=== PATIENT | male | born 1970 | race African-American/Black ===

== ENCOUNTER 2019-10-11 07:19 | Emergency (ER) | payer OTHER ==
[~2019-10-11] VITALS: Ht 177.8 cm; Wt 80.0 kg
[2019-10-11 07:26] VITALS: BP 130/83
[2019-10-11] MEDS ORDERED: LIDOcaine 5% patch TP STA (08:14)
[2019-10-11] MEDS ORDERED: cyclobenzaprine 10mg tablet PO ONE (08:15)
[2019-10-11] MEDS ORDERED: CYCL-1 PO (08:45)
[2019-10-11] MEDS ORDERED: LIDO700A32 TOP (08:45)
== END 2019-10-11 08:55 | disposition home or self-care (01) ==
LOC: ER 07:20
DX: S16.1XXA Strain of muscle, fascia and tendon at neck level, initial encounter (principal); F10.99 Alcohol use, unspecified with unspecified alcohol-induced disorder; Z79.899 Other long term (current) drug therapy; W18.39XA Other fall on same level, initial encounter; Y93.89 Activity, other specified; Y92.89 Other specified places as the place of occurrence of the external cause; Y99.8 Other external cause status; Y90.9 Presence of alcohol in blood, level not specified
CPT/HCPCS: 99283

== ENCOUNTER 2021-03-13 09:54 | Emergency (ER) | payer MEDICAID ==
[~2021-03-13] VITALS: Ht 177.8 cm; Wt 66.6 kg
[~2021-03-13 09:54] MED LIST: CYCL-1 PO; LIDO700A32 TOP
[2021-03-13 10:10] VITALS: BP 152/79
[2021-03-13] MEDS ORDERED: HYDR-3965 PO (10:51)
== END 2021-03-13 11:15 | disposition home or self-care (01) ==
LOC: ER 09:54
DX: S92.352A Displaced fracture of fifth metatarsal bone, left foot, initial encounter for closed fracture (principal); M79.672 Pain in left foot; Z72.89 Other problems related to lifestyle; Z79.899 Other long term (current) drug therapy; W18.40XA Slipping, tripping and stumbling without falling, unspecified, initial encounter; Y93.89 Activity, other specified; Y92.89 Other specified places as the place of occurrence of the external cause; Y99.8 Other external cause status
CPT/HCPCS: 73630; 99284

== ENCOUNTER 2021-03-16 12:54 | Emergency (ER) | payer MEDICAID ==
[~2021-03-16 12:54] MED LIST changes: +HYDR-3965 PO
--- NOTE | 2021-03-16 13:04 | NUR ---
pt left, he is going to follow up with clinic for referral to orthopedic provider
== END 2021-03-16 13:06 | disposition left against medical advice (07) ==
LOC: ER 12:54
DX: M79.673 Pain in unspecified foot (principal); Z53.21 Procedure and treatment not carried out due to patient leaving prior to being seen by health care provider

== ENCOUNTER 2021-03-27 18:05 | Emergency (ER) | payer MEDICAID ==
[~2021-03-27] VITALS: Ht 177.8 cm; Wt 66.8 kg
[2021-03-27] MEDS ORDERED: HYDR-3965 PO ×2 (19:41→19:48)
[2021-03-27 20:02] VITALS: BP 113/82
== END 2021-03-27 20:06 | disposition home or self-care (01) ==
LOC: ER 18:06
DX: S92.355A Nondisplaced fracture of fifth metatarsal bone, left foot, initial encounter for closed fracture (principal); Z72.89 Other problems related to lifestyle; Z79.899 Other long term (current) drug therapy; W10.8XXA Fall (on) (from) other stairs and steps, initial encounter; Y93.89 Activity, other specified; Y92.89 Other specified places as the place of occurrence of the external cause; Y99.0 Civilian activity done for income or pay
CPT/HCPCS: 99283

== ENCOUNTER 2021-03-28 05:26 | Emergency (ER) | payer MEDICAID ==
[~2021-03-28] VITALS: Ht 177.8 cm; Wt 77.3 kg
[2021-03-28 05:31] VITALS: BP 100/71
== END 2021-03-28 06:37 | disposition home or self-care (01) ==
LOC: ER 05:26
DX: S92.355D Nondisplaced fracture of fifth metatarsal bone, left foot, subsequent encounter for fracture with routine healing (principal); Z72.89 Other problems related to lifestyle; Z79.899 Other long term (current) drug therapy; X58.XXXD Exposure to other specified factors, subsequent encounter
CPT/HCPCS: 99281

== ENCOUNTER 2023-08-25 15:41 | Emergency (ER) | payer MEDICAID ==
[~2023-08-25] VITALS: Ht 177.8 cm; Wt 93.2 kg
[2023-08-25 15:59] VITALS: BP 102/61; PULSE 78; RESP 18; TEMP 97.1; O2SAT 97
[2023-08-25 19:00] LABS: ALANINE AMINOTRANSFERASE 22 U/L (12-78); ALKALINE PHOSPHATASE 84 IU/L (46-116); ANION GAP 7 (8-16); ASPARTATE AMINO TRANSFERASE 18 U/L (10-37); BASOPHILS % (AUTO) 0.4 % (0-1); BILIRUBIN,TOTAL 0.3 MG/DL (0.1-1.0); BLOOD UREA NITROGEN 18 MG/DL (7-18); BUN/CREATININE RATIO 11.1 (10.0-20.0); CALCIUM 9.3 MG/DL (8.5-10.1); CHLORIDE 103 MMOL/L (99-107); CREATININE 1.62 MG/DL (0.60-1.10); EOSINOPHILS % (AUTO) 0.3 % (0-6); GLUCOSE 106 MG/DL (70-104); HEMOGLOBIN 15.1 g/dl (14.0-17.9); LYMPHOCYTES # (AUTO) 0.8 X10'3 (1.1-4.8); LYMPHOCYTES % (AUTO) 7.3 % (21-51); MEAN CORPUSCULAR HEMOGLOBIN 27.1 PG (27.0-31.0); MEAN CORPUSCULAR HGB CONC 32.7 g/dL (33.0-36.5); MEAN CORPUSCULAR VOLUME 82.9 FL (78-98); MEAN PLATELET VOLUME 7.5 FL (7.4-10.4); MONOCYTES # (AUTO) 0.3 X10'3 (0-0.9); NEUTROPHILS # (AUTO) 9.7 X10'3 (1.8-7.7); PLATELET COUNT 487 X10'3 (140-440); POTASSIUM 4.1 MMOL/L (3.5-5.1); RED BLOOD COUNT 5.55 X10'6 (4.70-6.10); RED CELL DISTRIBUTION WIDTH 15.9 % (11.5-14.5); SODIUM 139 MMOL/L (135-145); TOTAL CARBON DIOXIDE 29.3 MMOL/L (24-32); TOTAL PROTEIN 7.9 G/DL (6.4-8.2); WHITE BLOOD COUNT 10.8 X10'3 (4.5-11.0); eCRCL 55 ML/MIN; eGFR 54 ML/MIN
== END 2023-08-25 19:16 | disposition home or self-care (01) ==
LOC: ER 15:42
DX: K40.90 Unilateral inguinal hernia, without obstruction or gangrene, not specified as recurrent (principal); F17.200 Nicotine dependence, unspecified, uncomplicated; Z87.81 Personal history of (healed) traumatic fracture; Z79.899 Other long term (current) drug therapy
CPT/HCPCS: 36415; 76870; 80053; 83605; 85025; 93976; 99284

== ENCOUNTER 2024-01-07 07:59 | Day surgery (SDC) | payer OTHER ==
[2024-01-02 14:56] LABS: BASOPHILS % (AUTO) 0.7 % (0-1); EOSINOPHILS # (AUTO) 0.1 X10'3 (0-0.9); EOSINOPHILS % (AUTO) 1.5 % (0-6); LYMPHOCYTES # (AUTO) 1.9 X10'3 (1.1-4.8); LYMPHOCYTES % (AUTO) 29.1 % (21-51); MEAN CORPUSCULAR HEMOGLOBIN 24.3 PG (27.0-31.0); MEAN CORPUSCULAR HGB CONC 31.9 g/dL (33.0-36.5); MEAN CORPUSCULAR VOLUME 76.2 FL (78-98); MEAN PLATELET VOLUME 7.3 FL (7.4-10.4); MONOCYTES # (AUTO) 0.6 X10'3 (0-0.9); NEUTROPHILS # (AUTO) 3.9 X10'3 (1.8-7.7); NEUTROPHILS % (AUTO) 59.7 % (42-75); PRE OP HEMATOCRIT 45.3 % (42.0-52.0); PRE OP HEMOGLOBIN 14.5 g/dL (14.0-17.9); PRE OP PLATELET COUNT 458 X10'3 (140-440); PRE OP WHITE BLOOD COUNT 6.6 10'3 (4.8-10.8); RED BLOOD COUNT 5.94 X10'6 (4.70-6.10)
[2024-01-02 15:11] LABS: ALBUMIN 3.5 G/DL (3.4-5.0); ALBUMIN/GLOBULIN RATIO 0.8 (1.1-1.5); ALKALINE PHOSPHATASE 73 IU/L (46-116); BLOOD UREA NITROGEN 9 MG/DL (7-18); BUN/CREATININE RATIO 7.7 (10.0-20.0); CALCIUM 8.7 MG/DL (8.5-10.1); CHLORIDE 106 MMOL/L (99-107); CREATININE 1.17 MG/DL (0.60-1.10); PRE OP ALT 20 U/L (30-65); PRE OP ANION GAP 8 (8-16); PRE OP AST 24 U/L (10-37); PRE OP BILIRUB, TOTAL 0.5 MG/DL (0.0-1.0); PRE OP GLUCOSE 111 MG/DL (70-104); PRE OP POTASSIUM 3.9 MMOL/L (3.4-5.1); PRE OP SODIUM 144 MMOL/L (135-145); TOTAL CARBON DIOXIDE 30.4 MMOL/L (24-32); TOTAL PROTEIN 7.7 G/DL (6.4-8.2); eGFR 79 ML/MIN
[2024-01-02 15:12] LABS: ANISOCYTOSIS 2+; MICROCYTOSIS 1+; PLATELET ESTIMATE INCREASED
[2024-01-02 15:13] LABS: ELLIPTOCYTES FEW; STOMATOCYTES FEW
[~2024-01-07] VITALS: Ht 177.8 cm; Wt 83.7 kg
[2024-01-07] VITALS (15 sets, daily range): BP systolic 120–163; BP diastolic 81–99; PULSE 58–70; RESP 14–22; TEMP 97.8; O2SAT 93–100
[~2024-01-07 07:59] MED LIST changes: -CYCL-1 PO; -HYDR-3965 PO; -LIDO700A32 TOP; +NO HOME MEDS
[2024-01-07] MEDS ORDERED: ringers solution, lacted 1,000 ML IV SCH (09:10)
[2024-01-07] MEDS ORDERED: morphine 2 MG/ML inj. syringe IV PRN (09:10)
[2024-01-07] MEDS ORDERED: morphine 4 MG/ML inj SYRINge IV PRN (09:10)
[2024-01-07] MEDS ORDERED: meperidine/PF 25mg/ml syringe IV PRN ×3 (09:10)
[2024-01-07] MEDS ORDERED: proCHLORperazine 10 MG/2 ml inj IV PRN (09:10)
[2024-01-07] MEDS ORDERED: ondansetron/PF 4mg/2ml inj IV PRN (09:10)
[2024-01-07] MEDS: ringers solution, lacted 1,000 ML IV SCH (09:17)
[2024-01-07] MEDS: famotidine 20mg tablet PO ONE (09:17)
[2024-01-07] MEDS: cefazolin 2gm/D5W 100mL 100 ML IV ONE (09:18)
[2024-01-07] MEDS ORDERED: sevoflurane 250ml liquid IH ONE (09:47)
[2024-01-07] MEDS ORDERED: fentaNYL/PF 50MCG/1 ML 2ML syringe ONE (09:50)
[2024-01-07] MEDS ORDERED: rocuronium 10mg/ml inj IV ONE (09:50)
[2024-01-07] MEDS ORDERED: propofol inj 20 ML IV ONE (09:50)
[2024-01-07] MEDS ORDERED: midazolam 1 mg/ML 2ml injection ONE (09:50)
[2024-01-07] MEDS: BUPIVAcaine/PF 2.5mg/ml (0.25%) 10ml vial ONE (10:08)
[2024-01-07] MEDS: LIDOcaine 1% 30ml preserv. free vial ONE (10:09)
[2024-01-07] MEDS ORDERED: glycopyrrolate 0.2mg/ml inj ONE (11:26)
[2024-01-07] MEDS ORDERED: ondansetron/PF 4mg/2ml inj ONE (11:26)
[2024-01-07] MEDS ORDERED: neostigmine methylsulfate 1 MG/ML 10ml vial ONE (11:26)
[2024-01-07] MEDS ORDERED: dexamethasone sod phosphate 4mg/ml inj. ONE (11:26)
[2024-01-07] MEDS ORDERED: HYDROcodone/acetaminophen 5mg/325mg tablet PO PRN (11:45)
== END 2024-01-07 13:24 | disposition home or self-care (01) ==
LOC: PAS 07:59
PROVIDERS: ATTEND Surgery
DX: K40.90 Unilateral inguinal hernia, without obstruction or gangrene, not specified as recurrent (principal); K42.9 Umbilical hernia without obstruction or gangrene; E66.01 Morbid (severe) obesity due to excess calories; Z87.891 Personal history of nicotine dependence; Z79.890 Hormone replacement therapy; Z79.891 Long term (current) use of opiate analgesic; Z79.899 Other long term (current) drug therapy; Z98.890 Other specified postprocedural states; Z68.26 Body mass index [BMI] 26.0-26.9, adult
CPT/HCPCS: 36415; 49591; 49650; 80053; 82948; 85025; 93005; C1781; J0690; J1100; J2250; J2405; J2704; J2710; J3010; J3490; J7030; J7120; S2900; Z7506; Z7508; Z7512; 85008; A4215; A4618